=== PATIENT | female | born 1950 | race Caucasian/White ===

== ENCOUNTER 2018-03-10 11:13 | Observation (INO) | payer MEDICARE ==
[~2018-03-10] VITALS: Ht 170.2 cm; Wt 155.1 kg
[2018-03-10 13:06] VITALS: BP 160/67
[2018-03-10] MEDS ORDERED: ZOLPIDEM TARTRATE 5 MG TAB PO PRN (13:30)
[2018-03-10] MEDS ORDERED: ENOXAPARIN SODIUM INJ 100 MG/ML SYR SC SCH ×2 (14:00→21:00)
[2018-03-10] MEDS ORDERED: ENOXAPARIN INJ 80 MG/0.8 ML SYR SC SCH (14:00)
[2018-03-10 14:09] VITALS: BP 160/67
--- NOTE | 2018-03-10 14:34 | Pre Op History & Physical ---
CHIEF COMPLAINT: Pulmonary emboli on outpatient CT scan. HISTORY OF PRESENT ILLNESS: The patient is a 68-year-old woman. She has a history of a pulmonary embolism in December 2008 and again in March 2009. She had a [place] filter placed at that time. Since 2008 she has taken Coumadin. Over the past 5 or 6 months she has noticed worsening dyspnea. She went for an outpatient CT scan. Although the CT scan showed some distortion, the radiologist noted multiple peripheral pulmonary emboli bilaterally. PAST SURGICAL HISTORY: Status post hysterectomy. PAST MEDICAL HISTORY 1. Pulmonary emboli as noted above. 2. History of obstructive sleep apnea. The patient uses BiPAP at home. 3. Chronic leg swelling. SOCIAL HISTORY: The patient lives in the [facility] area on the other side of [facility] with her . She is not an active smoker. She is not a drinker. FAMILY HISTORY: Family history is noncontributory. REVIEW OF SYSTEMS: The patient has no fever. There is no headache. She is not having any neck pain. She has no chest pain. She does note increased dyspnea. She does not have abdominal pain. There is no nausea or vomiting. She is having some leg edema which is chronic. She does not have any focal neurological problems. PHYSICAL EXAMINATION VITAL SIGNS: The patient is afebrile. The vital signs are stable. HEENT: Shows no facial swelling or erythema. The nasal mucosa is normal. The oropharynx is normal. LYMPHATIC: Shows no submandibular, cervical or supraclavicular adenopathy. CARDIAC: Reveals a regular rate and rhythm with a normal S1 and S2. There are no murmurs or rubs. LUNGS: Auscultation of the lungs reveals clear breath sounds bilaterally. There is no wheezing. ABDOMEN: Soft and nontender. There is no rebound or guarding. EXTREMITIES: Show 2+ to 3+ edema with some skin changes suggestive of chronic venous stasis. IMPRESSION 1. 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 2. Obesity hypoventilation syndrome. 3. Obstructive sleep apnea. PLAN 1. Patient will be started on Lovenox at 1 mg/kg twice a day. She will also be continued on her warfarin. 2. Hematology consult. 3. Ventilation perfusion scan. 4. Echocardiogram. 5. Continue BiPAP. Job#: [id number] KENNY
[2018-03-10 14:53] LABS: BASOPHILS # (AUTO) 0.1 (0.0-0.1); BASOPHILS % 0.4 % (0.0-1.0); EOSINOPHILS # (AUTO) 0.2 (0.0-0.4); EOSINOPHILS % 1.7 % (0.0-6.0); HEMATOCRIT 40.7 % (34.2-44.1); HEMOGLOBIN 13.1 g/dL (12.0-16.0); LYMPHOCYTES % 16.9 % (18.0-39.1); MEAN CORPUSCULAR HEMOGLOBIN 29.6 pg (28-32); MEAN CORPUSCULAR HGB CONC 32.2 g/dL (31-35); MEAN CORPUSCULAR VOLUME 92.1 fL (81-99); MONOCYTES # (AUTO) 0.7 (0.2-0.8); MONOCYTES % 6.2 % (4.4-11.3); NEUTROPHILS # (AUTO) 8.6 (2.1-6.9); NEUTROPHILS % 74.4 % (38.7-80.0); PLATELET COUNT 225 x10e3/uL (140-360); RED BLOOD COUNT 4.42 x10e6/uL (3.6-5.1); RED CELL DISTRIBUTION WIDTH 14.8 % (11.7-14.4)
[2018-03-10 15:02] LABS: INR 2.13; PROTHROMBIN TIME 22.4 seconds (11.9-14.5)
[2018-03-10 15:09] LABS: ALANINE AMINOTRANSFERASE 24 IU/L (0-55); ALBUMIN 3.5 g/dL (3.5-5.0); ALBUMIN/GLOBULIN RATIO 1.3 (0.8-2.0); ALKALINE PHOSPHATASE 83 IU/L (40-150); ANION GAP 15.2 mmol/L (8-16); BLOOD UREA NITROGEN 19 mg/dL (7-26); BUN/CREATININE RATIO 23 (6-25); CALCIUM 9.2 mg/dL (8.4-10.2); CARBON DIOXIDE 23 mmol/L (22-29); CHLORIDE 105 mmol/L (98-107); CREATININE, SERUM 0.84 mg/dL (0.57-1.11); EST GLOMERULAR FILTRATION RATE > 60 ML/MIN (60-); GLUCOSE 175 mg/dL (74-118); POTASSIUM 4.2 mmol/L (3.5-5.1); SODIUM 139 mmol/L (136-145)
[2018-03-10] MEDS ORDERED: LISINOPRIL10 MG PO (15:53)
[2018-03-10] MEDS ORDERED: VASOTEC10 M1 PO (15:53)
[2018-03-10] MEDS ORDERED: DYMISTA NASAL S23 GM (15:53)
[2018-03-10] MEDS ORDERED: FUROSEMIDE40 MG/4 ML PO (15:53)
[2018-03-10] MEDS ORDERED: METFORMIN HCL500 MG PO (15:53)
[2018-03-10] MEDS ORDERED: WARFARIN SODIUM3 MG PO (15:53)
[2018-03-10] MEDS ORDERED: XOPENEX HFA15 GM INH (15:53)
[2018-03-10] MEDS ORDERED: ATORVASTATIN CA20 MG PO (15:53)
[2018-03-10 16:26] VITALS: BP 148/63
[2018-03-10] MEDS: METFORMIN HCL 500 MG TAB PO SCH (16:29)
[2018-03-10] MEDS ORDERED: LEVALBUTEROL 15 GM AERO IH PRN (16:30)
[2018-03-10] MEDS ORDERED: LEVALBUTEROL TARTRATE INH PRN (16:30)
[2018-03-10] MEDS ORDERED: WARFARIN SOD 3 MG TAB PO SCH (17:00)
[2018-03-10 17:51] VITALS: BP 148/63
--- NOTE | 2018-03-10 19:56 | Diagnostic Imaging Report ---
EXAM: VENTILATION PERFUSION LUNG SCAN INDICATION: Shortness of breath COMPARISON: None DISCUSSION: Xenon-133 gas 20 mCi was administered via inhalation. Dynamic images of the lungs in the posterior projection were obtained through single breath and washout phases. Distribution of tracer is mildly irregular throughout the lungs. Washout is diffusely delayed with no air trapping. Perfusion images of the lungs in multiple projections were obtained following intravenous administration of 6 mCi of Tc-99m MAA. Distribution of tracer tracer is minimally irregular throughout the lungs. There are no segmental perfusion defects of any size. The contours of the lungs are well demarcated. Widening of the major fissure of the left lung is present. The cardiac silhouette is normal. IMPRESSION: 1. Scan findings represent a LOW probability for acute pulmonary embolic disease based on the PIOPED II criteria. 2. Scan findings are compatible with diffuse parenchymal and/or obstructive lung disease. PRELIMINARY REPORT was rendered by Dr. William on 03/10/2018. Signed by: Dr. Ginny Olivas M.D. on 03/13/2018 7:58 AM
[2018-03-10 20:00] VITALS: BP 128/59
[2018-03-10] MEDS ORDERED: ATORVASTATIN 20 MG TAB PO SCH (21:00)
[2018-03-11] VITALS: BP 133/59
[2018-03-11 04:00] VITALS: BP 130/58
[2018-03-11] MEDS: METFORMIN HCL 500 MG TAB PO SCH (07:55)
[2018-03-11 08:15] VITALS: BP 153/70
[2018-03-11] MEDS ORDERED: LISINOPRIL 10 MG TAB PO SCH (09:00)
[2018-03-11] MEDS ORDERED: NON-FORMULARY MEDICATION (Furosemide 40 MG) PO SCH (09:00)
[2018-03-11] MEDS ORDERED: FLUTICASONE NS SCH (09:00)
[2018-03-11] MEDS ORDERED: ENALAPRIL MALEATE 10 MG TAB PO SCH (09:00)
[2018-03-11] MEDS ORDERED: FUROSEMIDE 40 MG TAB PO SCH (09:00)
[2018-03-11] MEDS ORDERED: AZELASTINE NS SCH (09:00)
[2018-03-11 09:19] VITALS: BP 153/70
[2018-03-11] MEDS ORDERED: ALBUTEROL0.63 MG/3 NEB (12:05)
--- NOTE | 2018-03-11 17:59 | Consultation ---
DATE OF CONSULTATION: March 10, 2018 REQUESTING PHYSICIAN: Yonatan Dasilva MD REASON FOR CONSULTATION: Evaluation and management of the patient with known history of pulmonary embolism, presented with worsening shortness of breath. HISTORY OF PRESENTING ILLNESS: Ms. Cloud is a very pleasant 68-year-old female with complicated past medical history including long-standing history of recurrent pulmonary embolism for which she was initially diagnosed back in December 2008 and had a recurrence of event in March 2009 resulting had an IVC filter placement. She was started on Coumadin, which she has been taking and compliant with the medication. Apparently, for last 4-5 months, she has noticed increased dyspnea on exertion. She was seen and evaluated by pulmonary service and underwent outpatient CT scan. Apparently, CT scan showed some distorted picture and questionable bilateral pulmonary embolism [no report available]. Subsequently, patient was admitted to inpatient floor for further care. She has been continued with Coumadin and started on Lovenox. Hematology/oncology has been consulted to assist with the management. PAST MEDICAL HISTORY 1. Pulmonary embolism times 2 in 2008. 2. History of obstructive sleep apnea. Patient uses BiPAP at night time. 3. Chronic leg swelling. 4. Morbid obesity. PAST SURGICAL HISTORY 1. IVC filter placement. 2. Hysterectomy. SOCIAL HISTORY: Patient lives at [facility]. She denies history of active smoking, alcohol use, illicit drug use. FAMILY HISTORY: Noncontributory. REVIEW OF SYSTEMS: A 14-point review of systems negative except as mentioned above in history of presenting illness, as well as positive for fatigue, tiredness, dyspnea on exertion. ALLERGIES: NO KNOWN DRUG ALLERGIES. CURRENT MEDICATIONS: Reviewed and as per electronic medical record PHYSICAL EXAMINATION VITAL SIGNS: Reviewed and as per electronic medical record. HEENT: PERRLA. Extraocular movements are intact. Head atraumatic, normocephalic. NECK: Supple. CVS: S1/S2 audible. RESPIRATORY: Decreased bilateral air entry. ABDOMEN: Soft. Positive bowel sounds. EXTREMITIES: Positive edema in both lower extremities. LABORATORY DATA: White blood cell count of 11.6, hemoglobin 13.1, hematocrit 40.7, platelets 225,000. BUN 19, creatinine 0.8. INR 2.1. IMAGING: V/Q scan was performed on March 10, 2018 revealing low probability for acute pulmonary embolism. ASSESSMENT AND PLAN: Ms. Cloud is a very pleasant 68-year-old female with multiple medical problems including known history of obstructive sleep apnea, chronic lower extremity swelling, morbid obesity, and history of pulmonary embolism in December 2008. She has had inferior vena cava filter placement and started on Coumadin therapy, which she has been taking and has been compliant with the medication. She developed worsening shortness of breath approximately 6 months ago. She underwent workup recently in outpatient setting and had a computed tomography of chest revealing questionable pulmonary embolism bilaterally. She was admitted in inpatient floor. Hematology/oncology has been consulted to assist with management. I reviewed the record and discussed at length with the patient about her current status. Overall, this does not appear to be a recurrent pulmonary embolic event as patient's shortness of breath is progressive in nature without any sudden acute finding. V/Q scan is also low probability suggestive of less likely recurrent episode. Outpatient INR has been near therapeutic and patient appeared to be compliant with the medication. I also discussed at length the possibility of switching medication on a trial basis though patient will like to stick to Coumadin for now. She already has had IVC filter placement, which never been taken out. At this point, recommendation would be to discontinue Lovenox as INR is therapeutic and continue with the Coumadin. I will try to search other causes of progressive shortness of breath. Echocardiogram has been requested, so will follow up on the result. Thank you, Dr. Yonatan Dasilva, for giving me chance to participate in the care of this very pleasant female. Do not hesitate to call me if you have any further question. I will try to get in touch with you tomorrow. Job#: [id number] CQ MTDD
== END 2018-03-11 12:42 | disposition home or self-care (01) ==
LOC: IMCU 12:55
PROVIDERS: ADMIT Internal Medicine Critical Care Medicine; ATTEND Internal Medicine Critical Care Medicine
DX: R06.02 Shortness of breath (principal); Z86.711 Personal history of pulmonary embolism; Z79.01 Long term (current) use of anticoagulants; Z95.828 Presence of other vascular implants and grafts; E66.2 Morbid (severe) obesity with alveolar hypoventilation; Z68.43 Body mass index [BMI] 50.0-59.9, adult
CPT/HCPCS: 36415 ×2; 78582; 80053; 82948 ×2; 85025; 85610; A9540; A9558; G0378 ×2; J1650